=== PATIENT | female | born 1990 | race Hispanic/Latino ===

== ENCOUNTER 2023-04-10 11:07 | Day surgery (SDC) | payer SELFPAY ==
[2023-04-09 10:01] VITALS: BMI 43.6
[2023-04-10] MEDS ORDERED: Iopamidol 0 ML ONE (12:25)
[2023-04-10] MEDS ORDERED: Indomethacin 50 MG SUPP ONE (12:31)
[2023-04-10] MEDS ORDERED: Rocuronium Bromide 10 MG/ML (10ML VIAL) ONE (12:33)
[2023-04-10] MEDS ORDERED: Midazolam HCl 2 mg/2 ml Vial ONE (12:34)
[2023-04-10] MEDS ORDERED: SUGAMMADEX SODIUM 200 MG/2 ML VIAL ONE (12:34)
[2023-04-10] MEDS ORDERED: fentaNYL PF 100 MCG/2 ML SYRINGE ONE (12:34)
[2023-04-10] MEDS ORDERED: PROPOFOL 20 ML ONE ×2 (12:34→13:10)
[2023-04-10] MEDS ORDERED: cefTRIAXone (ROCEPHIN) 1 GM VIAL ONE (12:59)
[2023-04-10] MEDS ORDERED: Sodium Chloride 0.9% 100 ML ONE (12:59)
[2023-04-10] MEDS ORDERED: Iopamidol 30 ML ONE (14:16)
[2023-04-10] MEDS ORDERED: Ondansetron ODT 4 MG TAB ONE (16:18)
== END 2023-04-10 17:10 | disposition home or self-care (01) ==
LOC: SDC 11:07
PROVIDERS: ATTEND Internal Medicine Gastroenterology
PROC: 0FPB8DZ Removal of Intraluminal Device from Hepatobiliary Duct, Via Natural or Artificial Opening Endoscopic (ICD-10-PCS; principal; 2023-04-10)
PROC: 0F798DZ Dilation of Common Bile Duct with Intraluminal Device, Via Natural or Artificial Opening Endoscopic (ICD-10-PCS; principal; 2023-04-10)
DX: K80.30 Calculus of bile duct with cholangitis, unspecified, without obstruction (principal); F32.A Depression, unspecified; K80.42 Calculus of bile duct with acute cholecystitis without obstruction; Z79.899 Other long term (current) drug therapy
CPT/HCPCS: 74330; C1769; J0696; J2250; J2704; J3490; Q0162; Q9967

== ENCOUNTER 2024-09-04 23:39 | Inpatient (IN) | payer OTHER ==
[2024-09-05 00:23] VITALS: BMI 41.4
[2024-09-05] MEDS: Ondansetron PF 4 MG/2 ML Vial IVP PRN (02:40)
[2024-09-05 05:12] LABS: #Basophils Less than 0.03 10x3/uL (0.0-0.2); #Eosinophils 0.21 10x3/uL (0.0-0.7); #Monocytes 0.93 10x3/uL (0.11-0.59); #Neutrophils 5.01 10x3/uL (1.40-6.50); %Basophils 0.2 % (0.0-1.0); %Eosinophils 2.5 % (0.0-10.0); %Lymphocytes 25.2 % (21.0-51.0); %Monocytes 11.2 % (0.0-10.0); %Neutrophils 60.7 % (42.0-75.0); Hematocrit 30.5 % (36.0-47.0); Hemoglobin 9.8 g/dL (12.0-16.0); Mean Corpuscular Hemoglobin 25.9 pg (27.0-31.0); Mean Corpuscular Volume 80.5 fL (78.0-98.0); Platelet Count 203 10x3/uL (130-400); Red Blood Cell (RBC) Count 3.79 mill/uL (4.20-5.40); White Blood Cell (WBC) Count 8.27 10x3/uL (4.8-10.8)
[2024-09-05 05:53] LABS: ALT (SGPT) 298 U/L (Less than 34); AST (SGOT) 140 U/L (11-34); Albumin 3.1 g/dL (3.1-4.5); Alkaline Phosphatase 339 U/L (40-110); Anion Gap 12 mmol/L (10-20); BUN (Urea Nitrogen) 10 mg/dL (7.0-18.7); Bilirubin, Total 1.6 mg/dL (0.3-1.2); Calc. Creatinine Clearance 195 mL/min (70-130); Calcium 8.2 mg/dL (7.8-10.44); Carbon Dioxide 18 mmol/L (22-29); Chloride 111 mmol/L (98-107); Globulin 3.9 g/dL (2.4-3.5); Glucose 82 mg/dL (70-105); Potassium 3.7 mmol/L (3.5-5.1); Sodium 137 mmol/L (136-145)
[2024-09-05] MEDS ORDERED: Ondansetron PF 4 MG/2 ML Vial ONE (08:21)
[2024-09-05] MEDS ORDERED: Rocuronium Bromide 10 MG/ML (10ML VIAL) ONE (08:21)
[2024-09-05] MEDS ORDERED: PROPOFOL 40 ML ONE (08:21)
[2024-09-05] MEDS ORDERED: Glucagon 1 MG/ML KIT ONE (08:21)
[2024-09-05] MEDS ORDERED: Lidocaine 1% PF 5 ML VIAL ONE (08:21)
[2024-09-05] MEDS ORDERED: SUGAMMADEX SODIUM 200 MG/2 ML VIAL ONE (09:54)
[2024-09-05] MEDS: Simethicone Chewable 80 MG TAB PO PRN (12:24)
[2024-09-05] MEDS ORDERED: Acetaminophen 325 MG TAB PO PRN (13:47)
[2024-09-05] MEDS ORDERED: Ibuprofen 600 MG TAB PO PRN (13:48)
[2024-09-05 14:37] VITALS: BMI 41.4
[2024-09-05] MEDS: HYDROcodone/Acetaminophen 5/325 mg Tablet PO PRN (17:28)
[2024-09-05] MEDS: Enoxaparin 40 MG (0.4 mL) SYRINGE SC SCH (20:36)
[2024-09-06 04:56] LABS: #Basophils Less than 0.03 10x3/uL (0.0-0.2); #Eosinophils 0.05 10x3/uL (0.0-0.7); #Monocytes 0.83 10x3/uL (0.11-0.59); #Neutrophils 8.81 10x3/uL (1.40-6.50); %Basophils 0.1 % (0.0-1.0); %Eosinophils 0.4 % (0.0-10.0); %Lymphocytes 13.3 % (21.0-51.0); %Monocytes 7.4 % (0.0-10.0); %Neutrophils 78.4 % (42.0-75.0); Hematocrit 35.0 % (36.0-47.0); Hemoglobin 10.9 g/dL (12.0-16.0); Mean Corpuscular Hemoglobin 25.2 pg (27.0-31.0); Mean Corpuscular Volume 81.0 fL (78.0-98.0); Platelet Count 228 10x3/uL (130-400); Red Blood Cell (RBC) Count 4.32 mill/uL (4.20-5.40); White Blood Cell (WBC) Count 11.24 10x3/uL (4.8-10.8)
[2024-09-06 05:20] LABS: ALT (SGPT) 290 U/L (Less than 34); AST (SGOT) 118 U/L (11-34); Albumin 3.6 g/dL (3.1-4.5); Alkaline Phosphatase 371 U/L (40-110); Anion Gap 14 mmol/L (10-20); BUN (Urea Nitrogen) 8 mg/dL (7.0-18.7); Bilirubin, Total 2.4 mg/dL (0.3-1.2); Calc. Creatinine Clearance 181 mL/min (70-130); Calcium 9.2 mg/dL (7.8-10.44); Carbon Dioxide 21 mmol/L (22-29); Chloride 109 mmol/L (98-107); Globulin 4.6 g/dL (2.4-3.5); Glucose 93 mg/dL (70-105); Potassium 3.8 mmol/L (3.5-5.1); Sodium 140 mmol/L (136-145)
[2024-09-06] MEDS ORDERED: Dextrose 50% Abboject 50 ML SYRINGE SLOW IVP PRN (22:00)
[2024-09-06] MEDS ORDERED: Glucagon 1 MG/ML KIT IM PRN (22:00)
[2024-09-06] MEDS: Dextrose 50% Abboject 50 ML SYRINGE SLOW IVP SCH (23:02)
[2024-09-07 05:56] LABS: #Basophils Less than 0.03 10x3/uL (0.0-0.2); #Eosinophils 0.08 10x3/uL (0.0-0.7); #Monocytes 0.77 10x3/uL (0.11-0.59); #Neutrophils 5.46 10x3/uL (1.40-6.50); %Basophils 0.2 % (0.0-1.0); %Eosinophils 1.0 % (0.0-10.0); %Lymphocytes 23.0 % (21.0-51.0); %Monocytes 9.3 % (0.0-10.0); %Neutrophils 66.3 % (42.0-75.0); Hematocrit 28.5 % (36.0-47.0); Hemoglobin 9.0 g/dL (12.0-16.0); Mean Corpuscular Hemoglobin 25.6 pg (27.0-31.0); Mean Corpuscular Volume 81.2 fL (78.0-98.0); Platelet Count 194 10x3/uL (130-400); Red Blood Cell (RBC) Count 3.51 mill/uL (4.20-5.40); White Blood Cell (WBC) Count 8.25 10x3/uL (4.8-10.8)
[2024-09-07 06:18] LABS: ALT (SGPT) 176 U/L (Less than 34); AST (SGOT) 61 U/L (11-34); Albumin 2.7 g/dL (3.1-4.5); Alkaline Phosphatase 270 U/L (40-110); Anion Gap 12 mmol/L (10-20); BUN (Urea Nitrogen) 8 mg/dL (7.0-18.7); Bilirubin, Total 1.1 mg/dL (0.3-1.2); Calc. Creatinine Clearance 197 mL/min (70-130); Calcium 8.0 mg/dL (7.8-10.44); Carbon Dioxide 20 mmol/L (22-29); Chloride 108 mmol/L (98-107); Globulin 3.9 g/dL (2.4-3.5); Glucose 80 mg/dL (70-105); Potassium 3.5 mmol/L (3.5-5.1); Sodium 136 mmol/L (136-145)
[2024-09-07] MEDS ORDERED: Bisacodyl 10 MG SUPP PR PRN (11:52)
[2024-09-08 06:06] LABS: ALT (SGPT) 141 U/L (Less than 34); AST (SGOT) 51 U/L (11-34); Albumin 2.8 g/dL (3.1-4.5); Alkaline Phosphatase 249 U/L (40-110); Anion Gap 13 mmol/L (10-20); BUN (Urea Nitrogen) 6 mg/dL (7.0-18.7); Bilirubin, Total 0.8 mg/dL (0.3-1.2); Calc. Creatinine Clearance 207 mL/min (70-130); Calcium 8.1 mg/dL (7.8-10.44); Carbon Dioxide 19 mmol/L (22-29); Chloride 107 mmol/L (98-107); Globulin 3.7 g/dL (2.4-3.5); Glucose 73 mg/dL (70-105); Potassium 3.6 mmol/L (3.5-5.1); Sodium 135 mmol/L (136-145)
[2024-09-08 07:55] LABS: #Basophils Less than 0.03 10x3/uL (0.0-0.2); #Eosinophils 0.10 10x3/uL (0.0-0.7); #Monocytes 0.76 10x3/uL (0.11-0.59); #Neutrophils 5.63 10x3/uL (1.40-6.50); %Basophils 0.2 % (0.0-1.0); %Eosinophils 1.2 % (0.0-10.0); %Lymphocytes 24.5 % (21.0-51.0); %Monocytes 8.8 % (0.0-10.0); %Neutrophils 65.0 % (42.0-75.0); Hematocrit 27.2 % (36.0-47.0); Hemoglobin 8.5 g/dL (12.0-16.0); Mean Corpuscular Hemoglobin 25.6 pg (27.0-31.0); Mean Corpuscular Volume 81.9 fL (78.0-98.0); Platelet Count 208 10x3/uL (130-400); Red Blood Cell (RBC) Count 3.32 mill/uL (4.20-5.40); White Blood Cell (WBC) Count 8.66 10x3/uL (4.8-10.8)
[2024-09-08 17:21] VITALS: BP 129/79; TEMP 98.6
== END 2024-09-08 17:20 | disposition home or self-care (01) | DRG 446 ==
LOC: SURG B 23:59
PROVIDERS: ADMIT Internal Medicine; ATTEND Internal Medicine
PROC: 0F798DZ Dilation of Common Bile Duct with Intraluminal Device, Via Natural or Artificial Opening Endoscopic (ICD-10-PCS; principal; 2024-09-05)
PROC: 0FC98ZZ Extirpation of Matter from Common Bile Duct, Via Natural or Artificial Opening Endoscopic (ICD-10-PCS; 2024-09-05)
PROC: BF101ZZ Fluoroscopy of Bile Ducts using Low Osmolar Contrast (ICD-10-PCS; 2024-09-05)
PROC: 3E03329 Introduction of Other Anti-infective into Peripheral Vein, Percutaneous Approach (ICD-10-PCS; 2024-09-05)
DX: K80.51 Calculus of bile duct without cholangitis or cholecystitis with obstruction (principal); R74.01 Elevation of levels of liver transaminase levels; R79.89 Other specified abnormal findings of blood chemistry; Z90.49 Acquired absence of other specified parts of digestive tract; Z98.890 Other specified postprocedural states; Z87.891 Personal history of nicotine dependence; K83.8 Other specified diseases of biliary tract
CPT/HCPCS: 36415; 36416; 74177; 74330; 80053; 81001; 81025; 83690; 85025; C1726; C2625; J0169; J1100; J1611; J1650; J2270; J2405; J2543; J2550; J2704; J3010; J7030; J7120; J7999; Q9967